=== PATIENT | female | born 1940 | race Caucasian/White ===

== ENCOUNTER → 2024-01-20 | Emergency (ER) | payer OTHER ==
[~2024-01-20] MED LIST: ASPIRIN 81 MG CHEWABLE TABLET ONE
--- OUTSIDE RECORDS SUMMARY | 2024-01-20 06:20 | XMS REPORT | Continuity of Care Document ---
Author Name Unknown Address [address] [place] [address] thconnect Address [address] [address] Care Team Providers Care Barnworker Groom Name Role Phone C_Mohinder Attending Clinician Unavailable C_Mohinder Admitting Clinician Unavailable Payers Payer Name Policy Type Policy Number Effective Date Expirati on Date Source MEDICARE B-[place]: [address] [id number] 2007 00:00:00 [employer] - PLAN F (MEDICARE SUPPLEMENT) [id number] 2014 00:00:00 Encounters Start Date/Time End Date/Time Encounter Type Admission Type Attending Clinicians Care Facility Care Department Encounter ID Source 2016-12-07 06:12:00 2016-12-07 06:12:00 Outpatient C_Mohinder [facility] [id number] [facility]
--- NOTE | 2024-01-20 07:59 | RAD REPORT ---
EXAM DESCRIPTION: Lucinat Single View01/20/2024 7:08 am CLINICAL HISTORY: CHEST PAIN COMPARISON: CHEST SINGLE VIEW dated 09/18/2012; CHEST PA AND LAT 2 VIEW dated 05/02/2010; CHEST PA AN D LAT 2 VIEW dated 12/14/2003 TECHNIQUE: Portable AP view of the chest. FINDINGS: The lungs are clear. Decreased attenuation in the left lung base is favored relate to redu ricardo penetration. No pneumothorax or effusion. The cardiomediastinal contours are unremarkable. Radiod ensities adjacent to the right greater humeral tuberosity may relate to sequelae of calcific tendinit is. IMPRESSION: No acute cardiopulmonary process.
[2024-01-20 08:10] LABS: Absolute Basophils 0.1 K/uL (0-0.5); Absolute Eosinophils 0.2 K/uL (0-0.5); Absolute Lymphocytes (CBC) 1.2 K/uL (0.7-4.9); Absolute Monocytes 0.7 K/uL (0.1-1.3); Absolute Neutrophil 3.6 K/uL (1.8-8.0); Basophils % 0.9 % (0-1.3); Eosinophils % 3.1 % (0-4.4); Hematocrit 36.6 % (36.0-45.0); Hemoglobin 12.3 g/dL (12.0-15.0); Lymphocytes % 20.4 % (15.3-44.8); MCH 29.5 pg (27.0-35.0); MCHC 33.6 g/dL (32.0-36.0); MCV 87.7 fL (80-100); MPV 8.4 fL (7.6-11.3); Monocytes % 11.8 % (3.3-12.3); Neutrophils % 63.8 % (41.7-73.7); Nucleated Red Blood Cells % 0.1 % (0-0); Platelets 230 thou/uL (152-406); RBC Red Blood Cell Count 4.17 M/uL (3.86-4.86); Red Cell Distribution Width 14.2 % (12.1-15.2)
[2024-01-20 08:12] LABS: PT Prothrombin Time 11.2 SECONDS (9.5-12.5); Protime INR 1.02
[2024-01-20 08:28] LABS: Albumin 3.7 g/dL (3.4-5.0); Albumin/Globulin Ratio 1.1 (1.1-1.8); Bilirubin Direct 0.2 mg/dL (0-0.2); Bilirubin Indirect, Calculated 0.4 mg/dL (0.2-0.8); Bilirubin Total 0.6 mg/dL (0.2-1.0); Globulin 3.4 g/dL (2.3-3.5); Magnesium 2.3 mg/dL (1.6-2.4); Protein, Total 7.1 g/dL (6.4-8.2); Troponin High Sensitivity 8.7 pg/mL (<58.9)
--- NOTE | 2024-01-20 08:47 | EDPHYS ---
Physician Documentation [facility] Name: Vianca Choudhury Age: 83 yrs Sex: Female : 1940 Arrival Date: 01/20/2024 Time: 06:18 Bed 5 Private MD: ED Physician Tera Mcgill HPI: 01/19 06:29 This 83 yrs old Female presents to ER via EMS with complaints of Arm Pain. sp4 06:29 Female with past medical history of hypertension high cholesterol IBS and dementia sp4 presents with acute onset left forearm pain and discomfort associated with pain in the left wrist. Pain is atraumatic. Patient denied chest pain denied shortness of breath denied palpitations denied numbness or tingling . On arrival patient reports that symptoms have resolved. 06:40 Patient's relatives report that patient did complain of chest discomfort. sp4 Historical: - Allergies: 06:25 No Known Allergies; jb4 - PMHx: 06:25 HTN; high cholesterol; IBS; Dementia; jb4 - Immunization history:: Adult Immunizations up to date. - Social history:: Smoking status: Patient denies any tobacco usage or history of. - Family history:: not pertinent. ROS: 06:29 Constitutional: Negative for fever, chills, and weight loss, positive for left arm sp4 forearm pain 06:29 All other systems are negative, Exam: 06:29 Constitutional: This is a well developed, well nourished patient who is awake, alert, sp4 and in no acute distress. Head/Face: Normocephalic, atraumatic. Eyes: Pupils equal round and reactive to light, extra-ocular motions intact. Lids and lashes normal. Conjunctiva and sclera are not injected. Cornea within normal limits. Periorbital areas with no swelling, redness, or edema. ENT: Nares patent. No nasal discharge, no septal abnormalities noted. Tympanic membranes are normal and external auditory canals are clear. Oropharynx with no redness, swelling, or masses, exudates, or evidence of obstruction, uvula midline. Mucous membranes moist. Neck: Trachea midline, no thyromegaly or masses palpated, and no cervical lymphadenopathy. Supple, full range of motion without nuchal rigidity, or vertebral point tenderness. Chest/axilla: Normal chest wall appearance and motion. Nontender with no deformity. No lesions are appreciated. Cardiovascular: Regular rate and rhythm with a normal S1 and S2. No gallops, murmurs, or rubs. Normal PMI, no JVD. No pulse deficits. Respiratory: Lungs have equal breath sounds bilaterally, clear to auscultation and percussion. No rales, rhonchi or wheezes noted. No increased work of breathing, no retractions or nasal flaring. Abdomen/GI: Soft, with normal bowel sounds. No distension or tympany. No guarding or rebound. No evidence of tenderness throughout. Back: No spinal tenderness. No costovertebral tenderness. Skin: Warm, dry with normal turgor. Normal color with no rashes, no lesions, and no evidence of cellulitis. MS/ Extremity: Pulses equal, no cyanosis. Neurovascular intact. Full, normal range of motion. Neuro: Awake and alert, GCS 15, oriented to person, place, time, and situation. Cranial nerves II-XII grossly intact. Motor strength 5/5 in all extremities. Sensory grossly intact. Psych: Awake, alert, with orientation to person, place and time. Behavior, mood, and affect are within normal limits 07:03 ECG was reviewed by the Attending Physician. 5:45 AM and he reveals normal sinus rhythm sp4 with a rate of 64 Vital Signs: 06:32 BP 146 / 71; Pulse 76; Resp 16; Temp 98.1(O); Pulse Ox 97% on R/A; Weight 89.81 kg (R); jb4 Pain 3/10; 08:36 BP 152 / 76; Pulse 64; Resp 17; Temp 98; Pulse Ox 99% ; bp 06:32 Pain Scale: Adult jb4 NIH Stroke Scale Scores: 06:29 NIHSS Score: 0 sp4 Anant Coma Score: 06:29 Eye Response: spontaneous(4). Motor Response: obeys commands(6). Verbal Response: sp4 oriented(5). Total: 15. MDM: 06:29 Patient medically screened. sp4 06:30 Differential diagnosis: contusion, abrasion, tendonitis. Data reviewed: vital signs, sp4 nurses notes, EMS record, old medical records. 07:04 Transition of care: After a detail discussion of the patient's case, care is sp4 transferred to Tera Mcgill MD. 01/19 06:40 Order name: Basic Metabolic Panel; Complete Time: 08:34 sp4 01/19 06:40 Order name: CBC with Diff; Complete Time: 08:24 sp4 01/19 06:40 Order name: LFT's; Complete Time: 08:34 sp4 01/19 06:40 Order name: Magnesium; Complete Time: 08:34 sp4 01/19 06:40 Order name: NT PRO-BNP; Complete Time: 08:34 sp4 01/19 06:40 Order name: PT-INR; Complete Time: 08:24 sp4 01/19 06:40 Order name: Troponin HS; Complete Time: 08:34 sp4 01/19 06:40 Order name: XRAY Chest (1 view); Complete Time: 07:59 sp4 01/19 06:28 Order name: EKG; Complete Time: 06:29 sp4 01/19 06:28 Order name: EKG - Nurse/Tech; Complete Time: 07:06 sp4 01/19 06:40 Order name: Cardiac monitoring; Complete Time: 06:44 sp4 01/19 06:40 Order name: IV Saline Lock; Complete Time: 07:49 sp4 01/19 06:40 Order name: Labs collected and sent; Complete Time: 07:49 sp4 01/19 06:40 Order name: O2 Per Protocol; Complete Time: 06:43 sp4 01/19 06:40 Order name: O2 Sat Monitoring; Complete Time: 06:43 sp4 EC:03 Rate is 64 beats/min. Rhythm is regular, Normal Sinus Rhythm. QRS [place] is Normal. IN sp4 interval is normal. QRS interval is normal. QT interval is normal. No Q waves. T waves are Normal. Clinical impression: Normal ECG. Interpreted by me. Reviewed by me. Administered Medications: 07:06 Drug: Aspirin PO Chewable Tablet 324 mg PO once; 81 mg tablets x 4 Route: PO; jb4 07:50 Follow up: Response: No adverse reaction bp Disposition Summary: 01/20/24 08:46 Discharge Ordered Notes: Location: Home cp3 Condition: Stable cp3 Diagnosis - Pain in left forearm cp3 Discharge Instructions: - Discharge Summary Sheet cp3 - Musculoskeletal Pain cp3 Forms: - Medication Reconciliation Form cp3 - Thank You Letter cp3 - Antibiotic Education cp3 - Prescription Opioid Use cp3 - Patient Portal Instructions cp3 - Leadership Thank You Letter cp3 Prescriptions: - acetaminophen-codeine 300-60 mg Oral tablet - take 1 tablet ORAL route every 8 hours as needed for pain; 12 tablet; Refills: cp3 0, Product Selection Permitted - Zanaflex 4 mg Oral Tablet - take 1 tablet ORAL route every 8 hours As needed; 20 tablet; Refills: 0, cp3 Product Selection Permitted NIH Stroke Scale - NIH Stroke Score Date: 01/20/2024 Time: 06:29 Total Score = 0 10. Dysarthria (speech clarity - read or repeat words) - 0(Normal) 11. Extinction and Inattention (visual/tactile/auditory/spatial/personal) - 0(No abnormality) 1a. Level of Consciousness (LOC) - 0(Alert) 1b. Level of Consciousness (LOC) (Month \T\ Age) - 0(Both) 1c. LOC Commands (Open \T\ Closes Eyes/Heating Unit Installer) - 0(Both) 2. Best Gaze (Lateral Gaze Paresis) - 0(Normal) 3. Visual Field Loss - 0(No visual loss) 4. Facial Palsy - 0(Normal) 5a. Left Arm: Motor (10-second hold) - 0(No drift) 5b. Right Arm: Motor (10-second hold) - 0(No drift) 6a. Left Leg: Motor (5-second hold - always test supine) - 0(No drift) 6b. Right Leg: Motor (5-second hold - always test supine) - 0(No drift) 7. Limb Ataxia (finger/nose \T\ heel/gómez - test with eyes open) - 0(Absent) 8. Sensory Loss (pinprick arms/legs/face) - 0(Normal) 9. Best Language: Aphasia (description/naming/reading) - 0(No aphasia) Initials: sp4 Signatures: Dispatcher [employer] Tera Chan MD MD cp3 Dion Serrano RN RN jb4 Omar Regalado MD MD sp4 Last Amado RN bp
--- NOTE | 2024-01-20 08:47 | ER ---
Nurse's Notes [facility] Name: Vianca Choudhury Age: 83 yrs Sex: Female : 1940 Arrival Date: 01/20/2024 Time: 06:18 Bed 5 Private MD: Diagnosis: Pain in left forearm Presentation: 01/19 06:24 Chief complaint: EMS states: Pt called EMS reporting LFA pain that woke her from her jb4 sleep. Attempted 2 IV's, missed both attempts, no meds given, BGL 102. Coronavirus screen: At this time, the client does not indicate any symptoms associated with coronavirus-19. Ebola Screen: No symptoms or risks identified at this time. Risk Assessment: Do you want to hurt yourself or someone else? Patient reports no desire to harm self or others. Onset of symptoms was January 20, 2024. Transition of care: patient was not received from another setting of care. 06:24 Method Of Arrival: EMS: [facility] 4 06:24 Acuity: SOFIYA 4 jb4 09:05 Initial Sepsis Screen: Does the patient meet any 2 criteria? No. Patient's initial bp sepsis screen is negative. Does the patient have a suspected source of infection? No. Patient's initial sepsis screen is negative. Triage Assessment: 06:25 General: Appears in no apparent distress. comfortable, Behavior is calm, cooperative, jb4 appropriate for age. Pain: Complains of pain in dorsal aspect of left forearm. Historical: - Allergies: 06:25 No Known Allergies; jb4 - PMHx: 06:25 HTN; high cholesterol; IBS; Dementia; jb4 - Immunization history:: Adult Immunizations up to date. - Social history:: Smoking status: Patient denies any tobacco usage or history of. - Family history:: not pertinent. Screenin:[facility] ED Fall Risk Assessment (Adult) History of falling in the last 3 months, jb4 including since admission No falls in past 3 months (0 pts) Confusion or Disorientation No (0 pts) Intoxicated or Sedated No (0 pts) Impaired Gait No (0 pts) Mobility Assist Device Used No (0 pt) Altered Elimination No (0 pt) Score/Fall Risk Level 0 - 2 = Low Risk Oriented to surroundings, Maintained a safe environment. Abuse screen: Denies threats or abuse. Nutritional screening: No deficits noted. Tuberculosis screening: No symptoms or risk factors identified. Assessment: 06:33 General: Appears in no apparent distress. comfortable, Behavior is calm, cooperative, jb4 appropriate for age. Pain: Complains of pain in dorsal aspect of left forearm Pain does not radiate. Pain currently is 3 out of 10 on a pain scale. Quality of pain is described as aching. Neuro: Level of Consciousness is awake, alert, obeys commands, Oriented to person, place, situation. Cardiovascular: Patient's skin is warm and dry. Respiratory: Airway is patent Respiratory effort is even, unlabored, Respiratory pattern is regular, symmetrical. GI: No signs and/or symptoms were reported involving the gastrointestinal system. : No signs and/or symptoms were reported regarding the genitourinary system. EENT: No signs and/or symptoms were reported regarding the EENT system. Derm: Skin is intact, Skin is pink, warm \T\ dry. Musculoskeletal: Circulation, motion, and sensation intact. Range of motion:. 07:00 Reassessment: RECD REPORT FROM FANG PRAJAPATI FOR 83YO WF WITH LEFT FA PAIN. bp 08:45 Reassessment: Patient appears in no apparent distress at this time. Patient is alert, bp oriented x 3, equal unlabored respirations, skin warm/dry/pink. Vital Signs: 06:32 BP 146 / 71; Pulse 76; Resp 16; Temp 98.1(O); Pulse Ox 97% on R/A; Weight 89.81 kg (R); jb4 Pain 3/10; 08:36 BP 152 / 76; Pulse 64; Resp 17; Temp 98; Pulse Ox 99% ; bp 06:32 Pain Scale: Adult jb4 Anant Coma Score: 06:29 Eye Response: spontaneous(4). Motor Response: obeys commands(6). Verbal Response: sp4 oriented(5). Total: 15. NIH Stroke Scale Scores: 06:29 NIHSS Score: 0 sp4 ED Course: 06:24 Patient arrived in ED. jb4 06:25 Triage completed. jb4 06:25 Arm band placed on right wrist. jb4 06:28 Omar Regalado MD is Attending Physician. sp4 06:33 Patient has correct armband on for positive identification. Bed in low position. Call jb4 light in reach. Side rails up X 1. Provided Education on: On plan of care and expected wait times. Client placed on continuous cardiac and pulse oximetry monitoring. NIBP monitoring applied. 06:59 Dion Serrano, RN is Primary Nurse. jb4 07:10 XRAY Chest (1 view) In Process Unspecified. EDMS 07:12 Missed attempt(s): 22 gauge in right forearm. Bleeding controlled, band aid applied, jb4 catheter tip intact. 07:20 Primary Nurse role handed off by Dion Serrano, ALO bp 07:20 Last Amado, ALO is Primary Nurse. bp 07:47 Attending Physician role handed off by Omar Regalado MD cp3 07:47 Tera Mcgill MD is Attending Physician. cp3 07:49 Basic Metabolic Panel Sent. bp 07:49 CBC with Diff Sent. bp 07:50 LFT's Sent. bp 07:50 Magnesium Sent. bp 07:50 NT PRO-BNP Sent. bp 07:50 PT-INR Sent. bp 07:50 Troponin HS Sent. bp 07:50 Inserted saline lock: 22 gauge in left wrist, using aseptic technique. Blood collected. bp 09:04 No provider procedures requiring assistance completed. IV discontinued, intact, bp bleeding controlled, No redness/swelling at site. Pressure dressing applied. Administered Medications: 07:06 Drug: Aspirin PO Chewable Tablet 324 mg PO once; 81 mg tablets x 4 Route: PO; jb4 07:50 Follow up: Response: No adverse reaction bp Medication: 06:33 VIS not applicable for this client. jb4 Outcome: 08:46 Discharge ordered by MD. cp3 09:04 Discharged to home via wheelchair, with family, bp 09:04 Condition: stable 09:04 Discharge instructions given to patient, family, Instructed on discharge instructions, follow up and referral plans. medication usage, Demonstrated understanding of instructions, follow-up care, medications, Prescriptions given X 2, 09:05 Patient left the ED. bp NIH Stroke Scale - NIH Stroke Score Date: 01/20/2024 Time: 06:29 Total Score = 0 10. Dysarthria (speech clarity - read or repeat words) - 0(Normal) 11. Extinction and Inattention (visual/tactile/auditory/spatial/personal) - 0(No abnormality) 1a. Level of Consciousness (LOC) - 0(Alert) 1b. Level of Consciousness (LOC) (Month \T\ Age) - 0(Both) 1c. LOC Commands (Open \T\ Closes Eyes/Sanding Machine Tender Automatic) - 0(Both) 2. Best Gaze (Lateral Gaze Paresis) - 0(Normal) 3. Visual Field Loss - 0(No visual loss) 4. Facial Palsy - 0(Normal) 5a. Left Arm: Motor (10-second hold) - 0(No drift) 5b. Right Arm: Motor (10-second hold) - 0(No drift) 6a. Left Leg: Motor (5-second hold - always test supine) - 0(No drift) 6b. Right Leg: Motor (5-second hold - always test supine) - 0(No drift) 7. Limb Ataxia (finger/nose \T\ heel/gómez - test with eyes open) - 0(Absent) 8. Sensory Loss (pinprick arms/legs/face) - 0(Normal) 9. Best Language: Aphasia (description/naming/reading) - 0(No aphasia) Initials: sp4 Signatures: Dispatcher [employer] EDTera Pina MD MD cp3 Dion Serrano, ALO RN jb4 Last Amado RN RN bp Omar Regalado MD MD sp4 Corrections: (The following items were deleted from the chart) 08:45 08:36 Pulse 64bpm; Resp 17bpm; Pulse Ox 99%; Temp 98F; bp bp
[2024-01-20 09:24] VITALS: BP 152/76; TEMP 98; O2SAT 99
--- NOTE | 2024-01-22 14:13 | EKG ---
Test Date: 2024-01-20 Test Time: 05:45:24 Plating Foreman: RUSTY MEASUREMENT RESULTS: Intervals: Rate: 64 GA: 140 QRSD: 78 QT: 432 QTc: 445 [place]: P: 69 GA: 140 QRS: 43 T: 59 INTERPRETIVE STATEMENTS: Normal sinus rhythm Anterior infarct, age undetermined Abnormal ECG Compared to ECG 09/19/2012 07:03:44 Myocardial infarct finding now present Electronically Signed On 01-22-24 14:07:10 CDT by Tam Walsh
== END ==
LOC: ER 06:18
DX: M79.632 Pain in left forearm (principal); R07.89 Other chest pain; F03.90 Unspecified dementia, unspecified severity, without behavioral disturbance, psychotic disturbance, mood disturbance, and anxiety; I10 Essential (primary) hypertension
CPT/HCPCS: 36415; 71045; 80048; 80076; 83735; 83880; 84484; 85025; 85610; 93005; 99284

== ENCOUNTER 2024-02-19 20:02 | Observation (INO) | payer OTHER ==
--- OUTSIDE RECORDS SUMMARY | 2024-02-19 20:05 | XMS REPORT | Continuity of Care Document ---
Author Name Unknown Address [address] [place] [address] thconnect Address [address] [place] [address] Care Team Providers Care Logistics Team Leader Name Role Phone C_Mohinder Attending Clinician Unavailable C_Mohinder Admitting Clinician Unavailable Payers Payer Name Policy Type Policy Number Effective Date Expirati on Date Source [place]: [address] [id number] 2007 00:00:00 [employer] - PLAN F (MEDICARE SUPPLEMENT) [id number] 2014 00:00:00 Encounters Start Date/Time End Date/Time Encounter Type Admission Type Attending Clinicians Care Facility Care Department Encounter ID Source 2016-12-07 06:12:00 2016-12-07 06:12:00 Outpatient C_Mohinder [facility]G MMG [id number] [facility]
[2024-02-19] MEDS ORDERED: NA CHLORIDE 0.9% 1,000 ML ONE ×2 (20:27→21:22)
[2024-02-19 20:51] LABS: Absolute Lymphocytes (CBC) 1.1 K/uL (0.7-4.9); Absolute Monocytes 0.8 K/uL (0.1-1.3); Absolute Neutrophil 5.4 K/uL (1.8-8.0); Basophils % 0.4 % (0-1.3); Eosinophils % 0.6 % (0-4.4); Hematocrit 33.6 % (36.0-45.0); Hemoglobin 11.5 g/dL (12.0-15.0); Lymphocytes % 15.2 % (15.3-44.8); MCH 29.3 pg (27.0-35.0); MCHC 34.1 g/dL (32.0-36.0); MPV 8.2 fL (7.6-11.3); Monocytes % 10.9 % (3.3-12.3); Neutrophils % 72.9 % (41.7-73.7); Nucleated Red Blood Cells % 0.1 % (0-0); Platelets 178 thou/uL (152-406); Red Cell Distribution Width 13.4 % (12.1-15.2)
[2024-02-19 20:53] LABS: SARS-CoV-2 Antigen CONTROL BLUE LINE VIS/BG OK; SARS-CoV-2 Antigen Rapid Res Negative (Negative)
[2024-02-19 21:04] LABS: Albumin 3.1 g/dL (3.4-5.0); Anion Gap 8.7 mEq/L (5.0-15.0); Bilirubin Total 0.5 mg/dL (0.2-1.0); Globulin 3.1 g/dL (2.3-3.5); Potassium 3.7 mEq/L (3.5-5.1); Protein, Total 6.2 g/dL (6.4-8.2)
--- NOTE | 2024-02-19 21:45 | RAD REPORT ---
EXAM DESCRIPTION: Lucinat Single View02/19/2024 8:57 pm CLINICAL HISTORY: FEVER COMPARISON: Chest Single View dated 01/20/2024; CHEST SINGLE VIEW dated 09/18/2012; CHEST PA AND LAT 2 VIEW dated 05/02/2010; CHEST PA AND LAT 2 VIEW dated 12/14/2003 TECHNIQUE: Portable AP view of the chest. FINDINGS: Under penetration somewhat limits evaluation. The lungs are clear. No pneumothorax or eff usion. The cardiomediastinal contours are unremarkable. IMPRESSION: No acute cardiopulmonary process.
--- NOTE | 2024-02-19 21:50 | EDPHYS ---
Physician Documentation [facility] Name: Vianca Choudhury Age: 83 yrs Sex: Female : 1940 Arrival Date: 02/19/2024 Time: 20:02 Bed 13 Private MD: ED Physician Omar Regalado HPI: 02/18 21:38 This 83 yrs old Female presents to ER via Ambulatory with complaints of sent by kb pcp:headache,body aches,fever,weakness, Headache, General Weakness. 21:38 Pt is an 83 year old female who presents for sore throat, fever, chills, bodyaches, kb decreased appetite and decreased urination that started yesterday. Had a teledoc visit with Dr Hawkins who recommended she come to the ER for evaluation and admission. Historical: - Allergies: 20:14 No Known Allergies; as6 - PMHx: 20:14 Dementia; High Cholesterol; HTN; ibs; Asthma; as6 - PSHx: 20:14 Total abdominal hysterectomy; Cholecystectomy; Exploratory laparotomy; as6 - Immunization history:: Adult Immunizations up to date. - Infectious Disease History:: Denies. - Social history:: Smoking status: Patient denies any tobacco usage or history of. ROS: 21:38 Constitutional: As per HPI kb Exam: 21:38 Constitutional: This is a well developed, well nourished patient who is awake, alert, kb and in no acute distress. Head/Face: Normocephalic, atraumatic. ENT: Moist Mucous membranes Cardiovascular: Regular rate Respiratory: Respirations even and unlabored. No increased work of breathing. Talking in full sentences Abdomen/GI: Soft, non-tender. No distention Skin: Warm, dry with normal turgor. Normal color. MS/ Extremity: Pulses equal, no cyanosis. Neurovascular intact. Full, normal range of motion. Neuro: Awake and alert, GCS 15, oriented to person, place, time, and situation. Moves all extremities. Normal gait. Vital Signs: 20:11 BP 116 / 66; Pulse 74; Resp 16 S; Temp 98.8(O); Pulse Ox 97% on R/A; Weight 86.18 kg as6 (R); Height 5 ft. 3 in. (R); 20:34 BP 99 / 51; Pulse 73; Resp 17; Pulse Ox 96% ; rv 21:05 BP 92 / 61; Pulse 68; Resp 16; Pulse Ox 96% on R/A; rv 21:23 BP 102 / 57; Pulse 69; Resp 17; Pulse Ox 96% on R/A; rv 21:47 BP 103 / 64; Pulse 61; Resp 16; Pulse Ox 96% on R/A; rv 22:33 BP 111 / 82; Pulse 67; Resp 15; Temp 98; Pulse Ox 96% on R/A; rv 20:11 Body Mass Index 33.66 (86.18 kg, 160.02 cm) as6 Anant Coma Score: 20:33 Eye Response: spontaneous(4). Motor Response: obeys commands(6). Verbal Response: rv oriented(5). Total: 15. 22:34 Eye Response: spontaneous(4). Motor Response: obeys commands(6). Verbal Response: rv oriented(5). Total: 15. MDM: 20:10 Patient medically screened. kb 21:39 Differential diagnosis: flu, covid, strep, uri, dehydration. Data reviewed: vital kb signs, nurses notes. Historians other than the Patient: Spouse/Significant Other: daughter. 21:44 Consideration of Admission/Observation Patient was admitted/placed on observation. kb Escalation of care including admission/observation considered. Management of patient was discussed with the following: Management of patient was discussed with the following: Primary Care Provider: alicia Sexton pt admitted to inpatient status due to hypotension, repeat labs in AM and NS 100ml/hr. 21:48 Counseling: I had a detailed discussion with the patient and/or guardian regarding the kb historical points, exam findings, and any diagnostic results supporting the discharge/admit diagnosis, lab results, radiology results, the need for further work-up and treatment in the hospital. 02/18 20:15 Order name: CBC with Diff; Complete Time: 20:54 kb 02/18 20:15 Order name: CMP; Complete Time: 21:08 kb 02/18 20:15 Order name: Flu; Complete Time: 21:03 kb 02/18 20:15 Order name: SARS-COV-2 Antigen Rapid; Complete Time: 20:54 kb 02/18 20:15 Order name: Strep; Complete Time: 21:03 kb 02/18 20:15 Order name: Urinalysis w/ reflexes; Complete Time: 22:33 kb 02/18 21:05 Order name: Throat Culture EDMS 02/18 20:15 Order name: Chest Single View XRAY; Complete Time: 21:47 kb 02/18 20:15 Order name: IV Start; Complete Time: 20:32 kb Administered Medications: 20:32 Drug: NS 0.9% IV 1000 ml IV at 1000 ml once Route: IV; Rate: 1000 ml; Site: right rv forearm; 21:31 Follow up: IV Status: Completed infusion; IV Intake: 1000ml rv 21:31 Drug: NS 0.9% IV 1000 ml IV at 75 ml/hr continuous Route: IV; Rate: 75 ml/hr; Site: rv right forearm; 22:35 Follow up: IV Status: Infusion continued upon admission rv Disposition: 22:52 Co-signature as Attending Physician, Omar Regalado MD I agree with the assessment sp4 and plan of care. I reviewed the patient's care provided by the Advanced Practice Provider and agree with the diagnosis and treatment plan. Disposition Summary: 02/19/24 21:50 Hospitalization Ordered Notes: Hospitalization Status: Inpatient Admission kb Provider: Norman Hawkins Location: Telemetry/MedSurg (Inpatient) kb Condition: Stable kb Problem: new kb Symptoms: are unchanged kb Bed/Room Type: Standard Room Assignment: 414(02/19/24 22:19) Diagnosis - Viral infection, unspecified kb - Hypotension, unspecified kb Forms: - Medication Reconciliation Form kb - SBAR form kb - Leadership Thank You Letter kb Signatures: Dispatcher [employer] EDIA Isabela Curtis, HUMIDIFIER ATTENDANT-C HUMIDIFIER ATTENDANT-Ckb Perfecto Rios, RN Leigha Johnson Ashby, RN RN as6 Omar Regalado MD MD sp4 Corrections: (The following items were deleted from the chart) 20:16 20:16 CBC+H.LAB.BRZ ordered. EDMS EDMS 20:16 20:16 COMPREHENSIVE METABOLIC PANEL+C.LAB.BRZ ordered. EDMS EDMS 20:16 20:16 Influenza Screen (A \T\ B)+BA.LAB.BRZ ordered. EDMS EDMS 20:16 20:16 SARS-COV-2 Antigen Rapid+I.LAB.BRZ ordered. EDMS EDMS 20:16 20:16 Group A Streptococcus Rapid Sc+BA.LAB.BRZ ordered. EDMS EDMS 20:16 20:16 Urinalysis+U.LAB.BRZ ordered. EDMS EDMS 21:48 21:44 Management of patient was discussed with the following: kb kb 22:19 21:50 kb wm
--- NOTE | 2024-02-19 21:50 | ER ---
Nurse's Notes [facility] Name: Vianca Choudhury Age: 83 yrs Sex: Female : 1940 Arrival Date: 02/19/2024 Time: 20:02 Bed 13 Private MD: Diagnosis: Viral infection, unspecified;Hypotension, unspecified Presentation: 02/18 20:11 Chief complaint: Patient states: "I just don't feel good". Coronavirus screen: At this as6 time, the client does not indicate any symptoms associated with coronavirus-19. Ebola Screen: No symptoms or risks identified at this time. Initial Sepsis Screen: Does the patient meet any 2 criteria? No. Patient's initial sepsis screen is negative. Does the patient have a suspected source of infection? No. Patient's initial sepsis screen is negative. Risk Assessment: Do you want to hurt yourself or someone else? Patient reports no desire to harm self or others. Onset of symptoms was February 19, 2024. 20:11 Method Of Arrival: Ambulatory as6 20:11 Acuity: SOFIYA 3 as6 Historical: - Allergies: 20:14 No Known Allergies; as6 - PMHx: 20:14 Dementia; High Cholesterol; HTN; ibs; Asthma; as6 - PSHx: 20:14 Total abdominal hysterectomy; Cholecystectomy; Exploratory laparotomy; as6 - Immunization history:: Adult Immunizations up to date. - Infectious Disease History:: Denies. - Social history:: Smoking status: Patient denies any tobacco usage or history of. Screenin:33 [facility] ED Fall Risk Assessment (Adult) History of falling in the last 3 months, rv including since admission No falls in past 3 months (0 pts) Score/Fall Risk Level 0 - 2 = Low Risk Oriented to surroundings, Maintained a safe environment, Educated pt \\T\\ family on fall prevention, incl call for assistance when getting out of bed, Assessed \\T\\ reinforced patient's understanding of fall precautions. Abuse screen: Denies threats or abuse. Denies injuries from another. Nutritional screening: No deficits noted. Tuberculosis screening: No symptoms or risk factors identified. Assessment: 20:33 General: Appears comfortable, Behavior is calm, cooperative. Pain: Denies pain. Neuro: rv Level of Consciousness is awake, alert, obeys commands, Oriented to person, place, time, situation. Cardiovascular: Capillary refill < 3 seconds Patient's skin is warm and dry. Respiratory: Airway is patent Respiratory effort is even, unlabored, Breath sounds are clear bilaterally. GI: No signs and/or symptoms were reported involving the gastrointestinal system. : No signs and/or symptoms were reported regarding the genitourinary system. Derm: Skin is intact. Vital Signs: 20:11 BP 116 / 66; Pulse 74; Resp 16 S; Temp 98.8(O); Pulse Ox 97% on R/A; Weight 86.18 kg as6 (R); Height 5 ft. 3 in. (R); 20:34 BP 99 / 51; Pulse 73; Resp 17; Pulse Ox 96% ; rv 21:05 BP 92 / 61; Pulse 68; Resp 16; Pulse Ox 96% on R/A; rv 21:23 BP 102 / 57; Pulse 69; Resp 17; Pulse Ox 96% on R/A; rv 21:47 BP 103 / 64; Pulse 61; Resp 16; Pulse Ox 96% on R/A; rv 22:33 BP 111 / 82; Pulse 67; Resp 15; Temp 98; Pulse Ox 96% on R/A; rv 20:11 Body Mass Index 33.66 (86.18 kg, 160.02 cm) as6 [place] Coma Score: 20:33 Eye Response: spontaneous(4). Motor Response: obeys commands(6). Verbal Response: rv oriented(5). Total: 15. 22:34 Eye Response: spontaneous(4). Motor Response: obeys commands(6). Verbal Response: rv oriented(5). Total: 15. ED Course: 20:07 Patient arrived in ED. ra3 20:10 Isabela Curtis FNP-C [facility]. kb 20:10 Omar Regalado MD is Attending Physician. kb 20:10 Arm band placed on right wrist. as6 20:14 Triage completed. as6 20:16 Perfecto Rios, ALO is Primary Nurse. rv 20:32 Strep Sent. rv 20:32 SARS-COV-2 Antigen Rapid Sent. rv 20:32 Flu Sent. rv 20:32 CMP Sent. rv 20:32 CBC with Diff Sent. rv 20:33 Patient has correct armband on for positive identification. Client placed on continuous rv cardiac and pulse oximetry monitoring. NIBP monitoring applied. 20:33 No provider procedures requiring assistance completed. Initial lab(s) drawn, by me, rv sent to lab. COVID swab sent to lab. Flu and/or RSV swab sent to lab. Strep swab sent to lab. Inserted saline lock: 20 gauge in right forearm, using aseptic technique. Blood collected. 20:59 Chest Single View XRAY In Process Unspecified. EDMS 21:49 Norman Hawkins MD is Hospitalizing Provider. kb 22:35 Patient admitted, IV remains in place. rv Administered Medications: 20:32 Drug: NS 0.9% IV 1000 ml IV at 1000 ml once Route: IV; Rate: 1000 ml; Site: right rv forearm; 21:31 Follow up: IV Status: Completed infusion; IV Intake: 1000ml rv 21:31 Drug: NS 0.9% IV 1000 ml IV at 75 ml/hr continuous Route: IV; Rate: 75 ml/hr; Site: rv right forearm; 22:35 Follow up: IV Status: Infusion continued upon admission rv Medication: 20:33 VIS not applicable for this client. rv Intake: 21:31 IV: 1000ml; Total: 1000ml. rv Outcome: 21:50 Decision to Hospitalize by Provider. kb 22:34 Admitted to Tele accompanied by tech, via wheelchair, room 414, Report called to faxed rv and received report by Margo PRAJAPATI \\T\\[id number] 22:34 Condition: good 22:34 Instructed on the need for admit, 23:01 Patient left the ED. vc1 Signatures: Dispatcher [employer] EDMS Isabela Curtis, CAMPAIGN CONSULTANT-C CAMPAIGN CONSULTANT-Perfecto Jacobs RN RN rv Best Schaefer RN RN as6 Natalie Orellana RN RN 1 Felicity Baker ra3
[2024-02-19 22:25] LABS: Specific Gravity 1.011 (1.005-1.030); Sqamous Epithelial <5 /HPF (None Seen); Urine Bacteria None Seen /HPF (<20); Urine Bilirubin NEGATIVE (Negative); Urine Blood Negative (Negative); Urine Clarity Clear (Clear); Urine Color Light-Yellow (Yellow); Urine Culture Reflex Order REFLEXED; Urine Glucose NEGATIVE (Negative); Urine Ketones NEGATIVE (Negative); Urine Microscopic Reflex YN ORDER UMIC; Urine Mucus Slight /HPF (None Seen); Urine Nitrite NEGATIVE (Negative); Urine Protein NEGATIVE (Negative); Urine RBC <5 /HPF (None Seen); Urine Urobilinogen Normal (Normal); Urine WBC 20-50 /HPF (<5); Urine WBC Clump Rare /HPF (None Seen)
[2024-02-19] MEDS: NA CHLORIDE 0.9% 1,000 ML IV SCH (23:15)
[2024-02-20 04:52] VITALS: O2SAT 93; BMI 35.1
[2024-02-20 07:21] LABS: Absolute Eosinophils 0.1 K/uL (0-0.5); Absolute Lymphocytes (CBC) 0.8 K/uL (0.7-4.9); Absolute Monocytes 1.2 K/uL (0.1-1.3); Absolute Neutrophil 6.5 K/uL (1.8-8.0); Basophils % 0.5 % (0-1.3); Eosinophils % 1.5 % (0-4.4); Hematocrit 35.7 % (36.0-45.0); Hemoglobin 11.8 g/dL (12.0-15.0); MCHC 33.1 g/dL (32.0-36.0); MCV 87.5 fL (80-100); MPV 8.5 fL (7.6-11.3); Monocytes % 13.9 % (3.3-12.3); Neutrophils % 75.1 % (41.7-73.7); Platelets 180 thou/uL (152-406); RBC Red Blood Cell Count 4.08 M/uL (3.86-4.86); Red Cell Distribution Width 13.3 % (12.1-15.2)
[2024-02-20 09:07] VITALS: BP 133/61; TEMP 98.1
--- NOTE | 2024-02-20 11:16 | PN ---
This is a Code 44 note. The patient is an 83-year-old female who was admitted with flu-like symptoms and was evaluated by Dr. Hawkins this morning and he felt that the patient can be discharged home as she is clinically improved with hydration, did not need to be an inpatient; therefore, Dr. Hawkins discharged the patient with foll owup with him in his office. I have reviewed the chart and I concurred and I approved this conversio n from inpatient to observation. LINDSAY/MONY Voice ID: [id number] Report ID: [id number]
--- NOTE | 2024-02-20 19:53 | DS ---
Date of Discharge: 02/20/2024 Chief Complaint: Fever, cough, congestion, headache, body ache. History Of Present Illness: This is an 83-year-old very pleasant female patient, who started to have sore throat, low-grade fever around 99.5 degrees Fahrenheit with some headache, body ache, and very poor appetite and not eating and drinking well for last 2 days. Symptoms started on Sunday, which is 02/18/2024. Yesterday, the patient had a tele visit with me. After I evaluated her, I informed rosana tee that my suggestion is for her to come to emergency room for further evaluation and after she wa s evaluated in ER last night, she was admitted to the hospital. Her blood pressure was around 90 sys tolic when she came into ER and IV fluid was given to her in ER and then maintenance IV fluid continu ed. This morning, she is feeling much better and she looks a lot better compared to yesterday when I evaluated her for tele visit. She denies any complaints overnight. No diarrhea. No vomiting. Allergies: NO KNOWN ALLERGIES. Medications: Atorvastatin 20 mg daily, albuterol inhaler as needed, amlodipine 5 mg 2 times a day, a spirin 81 mg daily, dicyclomine 20 mg every 6 hours as needed, escitalopram 5 mg daily, galantamine 4 mg daily, lisinopril/HCTZ 20/25 mg 1 tablet by mouth daily. Review of Systems: Constitutional: As mentioned above. Respiratory: As mentioned above. ENT: As mentioned above. All other systems reviewed and negative. Past Medical History: Significant for hypertension, hyperlipidemia, hypothyroidism, mild intermitten t asthma, irritable bowel syndrome, osteoarthritis at multiple sites, osteopenia, vitamin D deficienc y. Past Surgical History: Tonsillectomy, cholecystectomy, appendectomy, hysterectomy, back surgery, kne e surgery, and hand surgery. Family History: Father , had asthma and myocardial infarction. Mother , had cirrhosis of li taz. Brother with heart disease and sister with Parkinson's disease, asthma, and emphysema. Social History: Negative for smoking. Use of alcohol occasional. Physical Examination: Vital Signs: This morning, temperature 98.3, pulse 66, respiratory rate 14, blood pressure 117/58, o xygen saturation 93% on room air. Height 5 feet 3 inches, weight 198 pounds. General: Awake, alert, oriented, not in distress. HEENT: Head atraumatic, normocephalic. Conjunctivae nonerythematous. Sclerae white. Mouth, no thr ush or edema noted. Ears/Nose, no mass, lesion, discharge noted. Neck: Supple. No JVD, lymph nodes, bruit, thyromegaly noted. Lungs: Bilateral good equal air entry. Clear to auscultation. No rhonchi. No rales. Heart: Normal heart sounds, no murmur or gallop. Abdomen: Soft, bowel sounds normal. No guarding, rigidity, tenderness, mass, hepatosplenomegaly, dis tention, or bruit noted. Extremities: No leg edema. No calf tenderness. Skin: No rash, ulcer, cellulitis. Lymphatics: No lymph node enlargement in neck, supraclavicular, infraclavicular region. Neuro: No focal neurological deficit. Chest: Unremarkable. External Genitalia: Deferred. Rectal: Deferred. Laboratory Data: Yesterday, white count 7.5, hemoglobin 11.5, platelets 178. This morning, white co unt 8.7, hemoglobin 11.8, platelets 180. Yesterday, chemistry, sodium 130, potassium 3.7, chloride 9 7, bicarb 28, BUN 16, creatinine 1, glucose 140. Liver function tests unremarkable. This morning, s odium 134, potassium 4, chloride 103, bicarb 27, BUN 12, creatinine 0.72, glucose 95. Urinalysis, le ukocytes 500, otherwise wbc 20 to 50, bacteria not seen, nitrites negative. Hospital Course: After the patient was evaluated in the ER, she was admitted to the hospital. The p atient had volume depletion with low blood pressure which was corrected with IV fluid hydration. Her influenza A, B, and COVID-19 test was negative. After I saw her, she was discharged to go back home in stable condition. What we suspected is the patient probably had some kind of viral infection and no need for any further hospitalization or any further intervention. Discharge Medications And Instructions: Continue all prior home medications except following changes : 1.Stop lisinopril/HCTZ. 2.Check blood pressure 2 times a day and if your systolic blood pressure which top number is less th an 130, then do not take your amlodipine. 3.Keep well hydrated and drink 60 ounces water daily. 4.Follow up at my office next week on 02/25/2024. Total time spent today minutes. BAUTISTA/MODL Voice ID: [id number] Report ID: [id number]
== END 2024-02-20 10:40 | disposition home or self-care (01) ==
LOC: ER 20:02 → ERHOLD 21:52 → INTOOBSV 21:52 → 4TH 22:26
PROVIDERS: ADMIT Internal Medicine; ATTEND Internal Medicine
DX: B34.9 Viral infection, unspecified (principal); I95.9 Hypotension, unspecified; E78.00 Pure hypercholesterolemia, unspecified; F03.90 Unspecified dementia, unspecified severity, without behavioral disturbance, psychotic disturbance, mood disturbance, and anxiety; J45.909 Unspecified asthma, uncomplicated; I10 Essential (primary) hypertension; E78.5 Hyperlipidemia, unspecified; E03.9 Hypothyroidism, unspecified; K58.9 Irritable bowel syndrome, unspecified; M19.90 Unspecified osteoarthritis, unspecified site; M85.80 Other specified disorders of bone density and structure, unspecified site; E55.9 Vitamin D deficiency, unspecified; Z11.52 Encounter for screening for COVID-19
CPT/HCPCS: 96361; 87070; 87088; 85025 ×2; 81001; 87086; 80048; 36415; 87081; 80053; 87804 ×2; 71045; 96360; 99285; 87811; J7030 ×2; G0378

== ENCOUNTER 2024-11-30 18:40 | Observation (INO) | payer OTHER ==
--- OUTSIDE RECORDS SUMMARY | 2024-11-30 18:43 | XMS REPORT | Continuity of Care Document ---
Author Name Unknown Address [address] [place] [address] [employer]connect Address [address] [place] [address] Care Team Providers Care Sock Boarder Name Role Phone C_Mohinder Attending Clinician Unavailable C_Mohinder Admitting Clinician Unavailable Payers Payer Name Policy Type Policy Number Effective Date Expirati on Date Source MEDICARE [place]: [employer] [id number] 2007 00:00:00 [employer] - PLAN F (MEDICARE SUPPLEMENT) [id number] 2014 00:00:00 Encounters Start Date/Time End Date/Time Encounter Type Admission Type Attending Clinicians Care Facility Care Department Encounter ID Source 2016-12-07 06:12:00 2016-12-07 06:12:00 Outpatient C_Hall [facility] [id number] [facility]
--- NOTE | 2024-11-30 20:22 | RAD REPORT ---
EXAM: Chest Single View HISTORY: syncope COMPARISON: 02/19/2024 FINDINGS: LUNGS/PLEURA: The lungs are clear. No pleural effusions or pneumothorax. No pulmonary edema. MEDIASTINUM: The mediastinal silhouette is within normal limits. CARDIAC: Stable size and configuration. UPPER ABDOMEN: No significant abnormality. BONES: No acute abnormality. LINES/TUBES/OTHER: N/A IMPRESSION: No evidence of acute cardiopulmonary disease.
[2024-11-30 21:03] LABS: Absolute Basophils 0.1 K/uL (0-0.5); Absolute Eosinophils 0.1 K/uL (0-0.5); Absolute Monocytes 0.6 K/uL (0.1-1.3); Absolute Neutrophil 7.8 K/uL (1.8-8.0); Basophils % 0.6 % (0-1.3); Eosinophils % 1.1 % (0-4.4); Hematocrit 39.4 % (36.0-45.0); Hemoglobin 13.1 g/dL (12.0-15.0); Lymphocytes % 10.1 % (15.3-44.8); MCH 28.7 pg (27.0-35.0); MCHC 33.2 g/dL (32.0-36.0); MCV 86.4 fL (80-100); MPV 8.5 fL (7.6-11.3); Monocytes % 6.3 % (3.3-12.3); Neutrophils % 81.9 % (41.7-73.7); Nucleated Red Blood Cells % 0.2 % (0-0); Platelets 215 thou/uL (152-406); RBC Red Blood Cell Count 4.57 M/uL (3.86-4.86)
[2024-11-30 21:05] LABS: PT Prothrombin Time 11.2 SECONDS (9.4-12.5); PTT, Activated Partial Thromb 28.3 SECONDS (24.3-36.9); Protime INR 1.07
[2024-11-30 21:12] LABS: Albumin 3.5 g/dL (3.4-5.0); Albumin/Globulin Ratio 0.9 (1.1-1.8); Anion Gap 10.4 mEq/L (5.0-15.0); Bilirubin Direct 0.2 mg/dL (0-0.2); Bilirubin Indirect, Calculated 0.5 mg/dL (0.2-0.8); Bilirubin Total 0.7 mg/dL (0.2-1.0); Globulin 3.8 g/dL (2.3-3.5); Magnesium 2.2 mg/dL (1.6-2.4); Potassium 4.4 mEq/L (3.5-5.1); Protein, Total 7.3 g/dL (6.4-8.2); Troponin High Sensitivity 6.6 pg/mL (<58.9)
--- NOTE | 2024-11-30 21:22 | RAD REPORT ---
EXAMINATION: CT HEAD WITHOUT CONTRAST CLINICAL INDICATION: Female, 84 years old.syncope, headache TECHNIQUE: Axial CT images from the skull base to the vertex without intravenous contrast. Coronal an d sagittal reformatted images were created from the data set. One or more of the following dose reduction techniques were used: Automated exposure control, adjustment of the mA and/or kV according to patient size, and/or iterative reconstruction. Unless otherwise specified, incidental findings do not require dedicated imaging follow-up. [id number]. COMPARISON: No prior exam. FINDINGS: INTRACRANIAL: No acute intracranial hemorrhage. No hydrocephalus. No mass effect or midline shift. Mo derate chronic small vessel ischemic changes.Age advanced cerebral atrophy. VASCULATURE: No visualized abnormalities in the arteries or dural venous sinuses. SCALP/SKULL: No significant soft tissue or osseous abnormalities. SINUSES: The visualized paranasal sinuses and mastoid air cells are predominantly clear. IMPRESSION: No acute intracranial abnormality.
--- NOTE | 2024-11-30 21:36 | ER ---
Nurse's Notes [facility] Name: Vianca Choudhury Age: 84 yrs Sex: Female : 1940 Arrival Date: 11/30/2024 Time: 18:40 Bed 14 Private MD: Diagnosis: syncope Presentation: 11/30 18:47 Chief complaint: EMS states: patient and her daughter were in dressing room at [place] [address] and the patient felt dizzy and collapsed, woke up after 1-2 minutes, did not hit the ground, daughter caught her and assisted her to the floor. Coronavirus screen: At this time, the client does not indicate any symptoms associated with coronavirus-19. Ebola Screen: No symptoms or risks identified at this time. Initial Sepsis Screen: Does the patient meet any 2 criteria? No. Patient's initial sepsis screen is negative. Does the patient have a suspected source of infection? No. Patient's initial sepsis screen is negative. Risk Assessment: Do you want to hurt yourself or someone else? Patient reports no desire to harm self or others. Onset of symptoms was November 30, 2024. Care prior to arrival: Medication(s) given: Normal saline infusion, 1000 mL, IV initiated. 20 GA, in the right forearm, Glucose check: 75. 18:47 Method Of Arrival: EMS: [facility] ko1 18:47 Acuity: SOFIYA 3 ko1 Triage Assessment: 18:52 General: Appears in no apparent distress. Behavior is calm, cooperative, appropriate ko1 for age. Pain: Denies pain. Neuro: Reports a syncopal episode. Historical: - Allergies: 18:52 No Known Allergies; ko1 - Home Meds: 18:52 Unable to obtain [Active]; ko1 - PMHx: 18:52 Asthma; Dementia; High Cholesterol; HTN; ibs; ko1 - PSHx: 18:52 Cholecystectomy; Exploratory laparotomy; Total abdominal hysterectomy; ko1 - Immunization history:: Adult Immunizations up to date. - Infectious Disease History:: Denies. - Social history:: Smoking status: Patient denies any tobacco usage or history of. Screenin:53 [facility] ED Fall Risk Assessment (Adult) History of falling in the last 3 months, ko1 including since admission Yes- single mechanical fall (1 pt) Confusion or Disorientation No (0 pts) Intoxicated or Sedated No (0 pts) Impaired Gait No (0 pts) Mobility Assist Device Used No (0 pt) Altered Elimination No (0 pt) Score/Fall Risk Level 0 - 2 = Low Risk Oriented to surroundings, Maintained a safe environment, Educated pt \T\ family on fall prevention, incl call for assistance when getting out of bed, Assessed \T\ reinforced patient's understanding of fall precautions, Hourly rounding (assess needs \T\ fall precautionary measures) done. Abuse screen: Denies threats or abuse. Denies injuries from another. Nutritional screening: No deficits noted. Tuberculosis screening: No symptoms or risk factors identified. Assessment: 18:53 Neuro: Level of Consciousness is awake, alert, obeys commands. Cardiovascular: Rhythm ko1 is sinus rhythm. 19:55 Reassessment: Patient appears in no apparent distress at this time. Patient and/or kj2 family updated on plan of care and expected duration. Pain level reassessed. Patient is alert, oriented x 3, equal unlabored respirations, skin warm/dry/pink. 20:50 Reassessment: Patient appears in no apparent distress at this time. Patient and/or kj2 family updated on plan of care and expected duration. Pain level reassessed. Patient is alert, oriented x 3, equal unlabored respirations, skin warm/dry/pink. Vital Signs: 18:47 BP 129 / 64; Pulse 67; Resp 16; Temp 97; Pulse Ox 97% on R/A; ko1 21:00 BP 131 / 71; Pulse 77; Resp 20; Pulse Ox 99% on R/A; kj2 ED Course: 18:46 Patient arrived in ED. ko1 18:47 Phoebe Hernandez, ALO is Primary Nurse. ko1 18:52 Triage completed. ko1 18:52 Arm band placed on right wrist. Patient placed in an exam room, on a stretcher, on ko1 pulse oximetry, Patient notified of wait time. 18:53 Patient has correct armband on for positive identification. Bed in low position. Call ko1 light in reach. Side rails up X2. Provided Education on: labs. Pulse ox on. NIBP on. Door closed. Noise minimized. Lights dimmed. 18:53 Maintain EMS IV. Dressing intact. Good blood return noted. Site clean \T\ dry. Gauge \T\ ko 1 site: 20g right FA. Flushed with 10 mL NS. 19:14 Chip Frias DO is Attending Physician. ms3 20:12 Chest Single View XRAY In Process Unspecified. EDMS 20:41 Missed attempt(s): 24 gauge Bleeding controlled, band aid applied, catheter tip intact. oe 20:47 Inserted saline lock: 22 gauge in right antecubital area, using aseptic technique. oe Blood collected. Flushed with 10 mL NS. 20:48 Basic Metabolic Panel Sent. oe 20:49 CBC with Diff Sent. oe 20:49 Hepatic Function Sent. oe 20:49 Magnesium Sent. oe 20:49 Protime (+inr) Sent. oe 20:49 Ptt, Activated Sent. oe 20:49 Troponin High Sensitivity Sent. oe 21:13 CT Head Brain wo Cont In Process Unspecified. EDMS 21:35 Norman Hawkins MD is Hospitalizing Provider. ms3 22:15 No provider procedures requiring assistance completed. rg5 22:15 Patient admitted, IV remains in place. [facility] 12/01 07:22 Primary Nurse role handed off by Phoebe Hernandez, ALO bd Administered Medications: 11/30 23:00 Drug: Ativan IVP 0.5 mg IVP once Route: IVP; Site: right antecubital; [facility] 12/01 01:03 Follow up: Response: No adverse reaction [facility] 02:55 Drug: Ativan IVP 0.5 mg IVP once Route: IVP; Site: right antecubital; [facility] 10:05 Follow up: Response: No adverse reaction; Anxiety decreased; RASS: Drowsy (-1) ll1 Medication: 11/30 18:53 VIS not applicable for this client. ko1 Point of Care Testin/27 14:27 n/a ll1 Ranges: Outcome: 11/30 21:35 Decision to Hospitalize by Provider. ms3 22:15 Admitted to ER Hold. Please see [facility] for further documentation. rg5 22:15 Condition: stable 22:15 Instructed on the need for admit, 12/01 14:36 Patient left the ED. ll1 Signatures: Dispatcher [employer] EDMS Rachel Cruz [place] oe Lizbeth Canada RN RN ll1 Chip Frias DO DO ms3 Phoebe Hernandez, RN RN ko1 Thomas Simon, RN RN rg5 Jordana Lilly, RN RN kj2
--- NOTE | 2024-11-30 21:36 | EDPHYS ---
Physician Documentation [facility] Name: Vianca Choudhury Age: 84 yrs Sex: Female : 1940 Arrival Date: 11/30/2024 Time: 18:40 Bed 14 Private MD: ED Physician Chip Frias HPI: 11/30 21:36 This 84 yrs old Female presents to ER via EMS with complaints of Syncope. ms3 21:36 Vianca Choudhury, an 84-year-old female, presents to the emergency department following a ms3 syncopal episode. The patient has experienced significant stress recently due to the loss of her . This afternoon she ate and drank well before going shopping. While in a warm dressing room with flickering lights, she began feeling dizzy and shortly after, lost consciousness. She did not hit her head during the fall and was caught by her daughter. Upon regaining consciousness, she felt nauseous but did not vomit. She does not recall the episode or feeling unwell before passing out. There is a report of a mild frontal headache but no numbness, weakness, or vomiting.. Historical: - Allergies: 18:52 No Known Allergies; ko1 - Home Meds: 18:52 Unable to obtain [Active]; ko1 - PMHx: 18:52 Asthma; Dementia; High Cholesterol; HTN; ibs; ko1 - PSHx: 18:52 Cholecystectomy; Exploratory laparotomy; Total abdominal hysterectomy; ko1 - Immunization history:: Adult Immunizations up to date. - Infectious Disease History:: Denies. - Social history:: Smoking status: Patient denies any tobacco usage or history of. ROS: 21:36 Constitutional: Negative for fever, and chills. Respiratory: Negative for shortness of ms3 breath, cough, wheezing, and pleuritic chest pain, Abdomen/GI: Negative for abdominal pain, nausea, vomiting, diarrhea, and constipation, MS/Extremity: Negative for injury and deformity, Skin: Negative for injury, rash, and discoloration, 21:36 Neuro: Positive for syncope, Exam: 21:36 Constitutional: This is a well developed, well nourished patient who is awake, alert, ms3 and in no acute distress. Cardiovascular: Regular rate and rhythm with a normal S1 and S2. No gallops, murmurs, or rubs. Normal PMI, no JVD. No pulse deficits. Respiratory: Lungs have equal breath sounds bilaterally, clear to auscultation and percussion. No rales, rhonchi or wheezes noted. No increased work of breathing, no retractions or nasal flaring. Back: No spinal tenderness. No costovertebral tenderness. Full range of motion. Skin: Warm, dry with normal turgor. Normal color with no rashes, no lesions, and no evidence of cellulitis. MS/ Extremity: Pulses equal, no cyanosis. Neurovascular intact. Full, normal range of motion. 21:36 ECG was reviewed by the Attending Physician. ms3 Vital Signs: 18:47 BP 129 / 64; Pulse 67; Resp 16; Temp 97; Pulse Ox 97% on R/A; ko1 21:00 BP 131 / 71; Pulse 77; Resp 20; Pulse Ox 99% on R/A; kj2 MDM: 19:33 Medical Screening Exam initiated ms3 21:36 Differential Diagnosis: cardiac arrhythmia, emotional response, idiopathic syncope. ms3 Data reviewed: vital signs, nurses notes, lab test result(s), EKG, radiologic studies, and as a result, I will admit patient. Consideration of Admission/Observation Patient was admitted/placed on observation. Management of patient was discussed with the following: Hospitalist: Dr Hawkins. Historians other than the Patient: Daughter/Son: Patient's daughter. Counseling: I had a detailed discussion with the patient and/or guardian regarding the historical points, exam findings, and any diagnostic results supporting the discharge/admit diagnosis, lab results, radiology results, the need for outpatient follow up, to return to the emergency department if symptoms worsen or persist or if there are any questions or concerns that arise at home. Special discussion: I discussed with the patient/guardian in detail that at this point there is no indication for admission to the hospital. It is understood, however, that if the symptoms persist or worsen the patient needs to return immediately for re-evaluation. ED course: Case was discussed with Dr. Hawkins and he agrees with plan for observation. Discussed necessity for observation with patient and her family. They understand and agree with plan.. 11/30 19:14 Order name: Basic Metabolic Panel; Complete Time: 21:30 ms3 11/30 19:14 Order name: CBC with Diff; Complete Time: 21:30 ms3 11/30 19:14 Order name: Hepatic Function; Complete Time: 21:30 ms3 11/30 19:14 Order name: Magnesium; Complete Time: 21:30 ms3 11/30 19:14 Order name: Protime (+inr); Complete Time: 21:30 ms3 11/30 19:14 Order name: Ptt, Activated; Complete Time: 21:30 ms3 11/30 19:14 Order name: Troponin High Sensitivity; Complete Time: 21:30 ms3 11/30 22:25 Order name: CBC with Automated Diff EDMS 11/30 22:25 Order name: CBC with Automated Diff; Complete Time: 06:20 EDMS 11/30 22:25 Order name: Comprehensive Metabolic Panel EDMS 11/30 22:25 Order name: Comprehensive Metabolic Panel; Complete Time: 06:20 EDMS 11/30 22:25 Order name: Troponin High Sensitivity EDMS 11/30 22:25 Order name: Troponin High Sensitivity; Complete Time: 01:13 EDMS 11/30 22:25 Order name: Troponin High Sensitivity; Complete Time: 06:20 EDMS 11/30 22:25 Order name: Troponin High Sensitivity EDMS 11/30 19:14 Order name: Chest Single View XRAY; Complete Time: 20:26 ms3 11/30 19:34 Order name: CT Head Brain wo Cont; Complete Time: 21:30 ms3 12/01 08:26 Order name: US EDMS 11/30 19:14 Order name: Cardiac monitoring; Complete Time: 19:39 ms3 11/30 19:14 Order name: EKG - Nurse/Tech; Complete Time: 19:39 ms3 11/30 19:14 Order name: IV Saline Lock; Complete Time: 20:48 ms3 11/30 19:14 Order name: Labs collected and sent; Complete Time: 20:48 ms3 11/30 19:14 Order name: NPO; Complete Time: 21:13 ms3 11/30 19:14 Order name: O2 Per Protocol; Complete Time: 20:49 ms3 11/30 19:14 Order name: O2 Sat Monitoring; Complete Time: 20:49 ms3 EC:36 Rate is 69 beats/min. Rhythm is regular. QRS [place] is Normal. CO interval is normal. QRS ms3 interval is normal. Clinical impression: NSR w/ Non-specific ST/T Changes. Interpreted by me. Reviewed by me. Administered Medications: 23:00 Drug: Ativan IVP 0.5 mg IVP once Route: IVP; Site: right antecubital; rg5 12/01 01:03 Follow up: Response: No adverse reaction 5 02:55 Drug: Ativan IVP 0.5 mg IVP once Route: IVP; Site: right antecubital; 5 10:05 Follow up: Response: No adverse reaction; Anxiety decreased; RASS: Drowsy (-1) ll1 Point of Care Testin:27 n/a ll1 Ranges: Critical Glucose Levels:Adult <50 mg/dl or >400 mg/dl <40 mg/dl or >180 mg/dl Disposition Summary: 11/30/24 21:35 Hospitalization Ordered Notes: Hospitalization Status: Observation ms3 Provider: Norman Hawkins ms3 Condition: Stable ms3 Problem: new ms3 Symptoms: are unchanged ms3 Bed/Room Type: Standard ms3 Location: [facility] ER HOLD(11/30/24 22:44) [facility] Room Assignment: ERHOLD-(11/30/24 22:44) [facility] Diagnosis - syncope ms3 Forms: - Medication Reconciliation Form ms3 - SBAR form ms3 - Leadership Thank You Letter ms3 Signatures: Dispatcher [employer] EDMS Negrita Cole, RN RN lg3 Chip Frias, DO ms3 Phoebe Hernandez RN RN ko1 Thomas Simon RN RN rg5 Lizbeth Canada RN ll1 Corrections: (The following items were deleted from the chart) 11/30 19:15 19:15 Chest Single View+RAD.RAD.BRZ ordered. EDNE EDMS 22:44 21:35 Telemetry/MedSurg (observation) ms3 lg3 22:44 21:35 ms3 lg3
[2024-11-30] MEDS ORDERED: ONDANSETRON 4 MG/2 ML VIAL IV PRN (22:20)
[2024-11-30] MEDS ORDERED: LORazepam 2 MG/ML VIAL ONE (23:02)
[2024-12-01] MEDS ORDERED: LORazepam 2 MG/ML VIAL ONE (01:14)
[2024-12-01 02:49] VITALS: BMI 30.9
[2024-12-01 05:23] LABS: Absolute Eosinophils 0.2 K/uL (0-0.5); Absolute Monocytes 0.6 K/uL (0.1-1.3); Absolute Neutrophil 3.3 K/uL (1.8-8.0); Basophils % 0.6 % (0-1.3); Hematocrit 34.3 % (36.0-45.0); Hemoglobin 11.4 g/dL (12.0-15.0); Lymphocytes % 19.9 % (15.3-44.8); MCH 28.7 pg (27.0-35.0); MCHC 33.2 g/dL (32.0-36.0); MCV 86.3 fL (80-100); MPV 7.9 fL (7.6-11.3); Monocytes % 11.4 % (3.3-12.3); Neutrophils % 65.1 % (41.7-73.7); Nucleated Red Blood Cells % 0.2 % (0-0); Platelets 186 thou/uL (152-406); RBC Red Blood Cell Count 3.98 M/uL (3.86-4.86); Red Cell Distribution Width 13.3 % (12.1-15.2)
[2024-12-01 05:50] LABS: Albumin 3.1 g/dL (3.4-5.0); Albumin/Globulin Ratio 1.1 (1.1-1.8); Anion Gap 6.9 mEq/L (5.0-15.0); Bilirubin Total 0.5 mg/dL (0.2-1.0); Globulin 2.8 g/dL (2.3-3.5); Potassium 3.9 mEq/L (3.5-5.1); Protein, Total 5.9 g/dL (6.4-8.2)
[2024-12-01] MEDS: PNEUMOCOCCAL VACCINE 0.5 ML IMVAC ONE (08:00)
--- NOTE | 2024-12-01 08:26 | RAD REPORT ---
EXAMINATION: CAROTID DUPLEX ULTRASOUND CLINICAL INDICATION: syncope TECHNIQUE: Real-time grayscale, color flow and spectral Doppler sonographic images were obtained of t he extracranial carotid system using a linear transducer. COMPARISON: No prior exam. FINDINGS: RIGHT: Common carotid artery: 81 cm/s Internal carotid artery: 78 cm/s External carotid artery: 79 cm/s Right ICA/CCA ratio: 1.2 Plaque: Mild to moderate hard plaque at the bulb. Vertebral artery Antegrade LEFT: Common carotid artery: 76 cm/s Internal carotid artery: 106 cm/s External carotid artery: 76 cm/s Left ICA/CCA ratio: 1.3 Plaque: Mild to moderate hard plaque at the bulb. Vertebral artery Antegrade IMPRESSION: No hemodynamically significant stenosis (greater than 50%) within the extracranial internal carotid a rteries. Mild to moderate hard plaquing is seen both carotid bulbs. The degrees of stenosis, if any, are quantified according to the consensus statement of the Society o f Radiologists in Ultrasound (SRUS). Please refer to Bear E, Av C, Che G et al. Carotid Artery Stenosis: Saldaña-Scale and Doppler US Diagnosis--Society of Radiologists in Ultrasound Consensus Conference. Radiology. 2003;229(2):340-6.
[2024-12-01] MEDS: ASPIRIN EC 81 MG TAB PO SCH (08:43)
[2024-12-01] MEDS: ESCITALOPRAM 5 MG TAB PO SCH (09:00)
[2024-12-01 11:26] VITALS: TEMP 97.8
[2024-12-01 14:36] VITALS: BP 116/70
[2024-12-01 17:10] VITALS: O2SAT 99
[2024-12-01] MEDS ORDERED: ATORVASTATIN 20 MG TAB PO SCH (21:00)
--- NOTE | 2024-12-02 03:58 | HP ---
Date of Admission: 12/01/2024 Chief Complaint: Fainting episode. History Of Present Illness: An 84-year-old very pleasant female patient, who was in her usual state of health until yesterday when she describes as having a very busy day as she was out of the house mo st of the day and did not drink much water yesterday as she normally does and she was at a local mall in a store trying some clothes out in the feeding room and daughter was with her in the feeding room and all of a sudden, the patient was feeling dizzy and daughter was right there next to her and she realized that the patient did not look normal and while she was talking to the patient and holding he r, next thing she knows that the patient started to faint and she gently placed the patient on the fl oor and the patient did actually pass out for a brief period of time and granddaughter was outside [facility] feeding room who ended up calling 911. The patient had episode of nausea, vomiting after that, but no chest pain, no shortness of breath. She appeared cold and clammy and after she was placed on the ground, she slowly started coming around and when ambulance came there, her blood pressure was on lo w side and she was brought into the emergency room and after she was evaluated, she was admitted to [facility]. This morning when I saw her, she was still in the emergency room and daughter was with her at bedside. No other complaints reported after she came into emergency room. When I saw her, noé denies any abdominal pain, nausea, vomiting. No chest pain, no shortness of breath. Allergies: NO KNOWN ALLERGIES. Medications: 1.Amlodipine 5 mg 2 times a day as needed for systolic blood pressure more than 130 and the patient' s daughter tells me that some days she ends up taking it and some day she does not depending on the b lood pressure as per instruction. 2.Aspirin 81 mg daily. 3.Escitalopram 5 mg daily. 4.Galantamine 8 mg daily. 5.Atorvastatin 20 mg daily. 6.Albuterol inhaler 2 puffs 4 times a day as needed. Review of Systems: Cardiovascular: As mentioned above. 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 All other systems reviewed and negative. Past Medical History: Mild intermittent asthma, hyperlipidemia, hypertension, [facility], irritable bowel syndrome, allergic rhinitis, anxiety, impaired memory, chronic fatigue, p rior history of TIA, vascular dementia, and depression, past medical history also significant for hyp othyroidism, past medical history also significant for vitamin D deficiency and osteopenia. Past Surgical History: Significant for tonsillectomy, cholecystectomy, appendectomy, hysterectomy, b ack surgery, bilateral knee arthroplasty, and right hand surgery. Family History: Father , had asthma and myocardial infarction. Mother , had cirrhosis of li taz. Brother had heart disease. Sister had Parkinson's disease and emphysema. Social History: Negative for smoking. Use of alcohol, occasional. Physical Examination: Vital Signs: This morning, temperature 98, pulse 67, respiratory rate 17, blood pressure 127/71, oxy gen saturation 97%. Height 5 feet 4 inches, weight 180 pounds. General: Awake, alert, oriented, not in distress. HEENT: Head atraumatic, normocephalic. Conjunctivae nonerythematous. Sclerae white. Mouth, no thr ush or edema noted. Ears/Nose, no mass, lesion, discharge noted. Neck: Supple. No JVD, lymph nodes, bruit, thyromegaly noted. Lungs: Bilateral good equal air entry. Clear to auscultation. No rhonchi. No rales. Heart: Normal heart sounds, no murmur or gallop. Abdomen: Soft, bowel sounds normal. No guarding, rigidity, tenderness, mass, hepatosplenomegaly, dis tention, or bruit noted. Extremities: No leg edema. No calf tenderness. Skin: No rash, ulcer, cellulitis. Lymphatics: No lymph node enlargement in neck, supraclavicular, infraclavicular region. Neuro: No focal neurological deficit. Chest: Unremarkable. External Genitalia: Deferred. Rectal: Deferred. Laboratory Data: Yesterday, WBC 9.5, hemoglobin 13.1, platelets 215. This morning, WBC 5, hemoglobi n 11.4, platelets 186. For chemistry yesterday, sodium 136, potassium 4.4, chloride 104, bicarb 26, BUN 15, creatinine 0.91, glucose 102. Liver function tests unremarkable. First troponin 6.6, second troponin 6.5, third troponin 6.6. This morning, sodium 138, potassium 3.9, chloride 107, bicarb 28, BUN 18, creatinine 0.74, glucose 134. Liver function tests unremarkable. Chest x-ray, no acute car diopulmonary changes. CT scan of the head, no acute intracranial changes. Carotid Doppler shows todd ateral carotid artery plaquing, but no evidence of any hemodynamically significant stenotic lesion. Echo with Doppler was done prior to discharge, results pending, and I will follow up on it on outpati ent basis. Hospital Course: After the patient was evaluated in the emergency room, she was admitted to the [facility]. I saw her this morning in the emergency room. Her daughter was with her at bedside. No abnor mal findings noted on physical exam. The patient was given IV fluid and she tolerated diet very well . Her stay was unremarkable in the hospital and after all the necessary testings were done, we commu nicated with the patient's daughter and she was with the patient all day and reported that she is com fortable taking the patient home. Medically, she is stable for discharge. We did check her orthosta tic vitals today at the hospital. Her supine blood pressure was 138/69 with pulse 62, sitting blood pressure 128/73 with pulse 73, standing blood pressure 114/71 with pulse 88. So after her brief stay in hospital, decision was made to discharge her to go home and I will follow up with her next week a s per scheduled appointment and the patient's daughter was notified about the followup appointment ne xt week. I did instruct the patient's daughter to discontinue her blood pressure medication which is amlodipine completely and to keep the patient well hydrated. Discharge Medications And Instructions: 1.Continue all prior home medications except stop amlodipine. 2.Drink 60 ounces water daily. 3.Follow up at my office next week. Final Diagnoses: 1.Syncope. 2.Hypotension. 3.Anemia, unspecified. 4.Vascular dementia. 5.Hypertension. 6.Hyperlipidemia. 7.Osteoarthritis, multiple sites. 8.Chronic aspirin use. 9.Anxiety. Total time spent today was 90 minutes that includes communication with emergency room physician, carmela garcia of emergency room visit records, review of last office visit record from 08/04/2024, performing to day's evaluation and management, and communication with the patient's daughter on multiple occasions through office today. BAUTISTA/MODL Voice ID: [id number]
--- NOTE | 2024-12-02 13:28 | ECHO ---
HEIGHT: 5 ft 4 in WEIGHT: 180 lb 0 oz DATE OF STUDY: REFER DR: Norman Hawkins MD 2-DIMENSIONAL: YES M.MODE: YES DOPPLER: YES COLOR FLOW: YES TDS: NO PORTABLE: YES DEFINITY: NO BUBBLE STUDY: NO DIAGNOSIS: SYNCOPE CARDIAC HISTORY: CATHERIZATION: NO SURGERY: NO PROSTHETIC VALVE: NO PACEMAKER: NO MEASUREMENTS (cm) DIASTOLIC (NORMALS) SYSTOLIC (NORMALS) IVSd 1.2 (0.6-1.2) LA Diam 2.8 (1.9-4.0) LVEF 55-60% LVIDd 4.7 (3.5-5.7) LVIDs 2.9 (2.0-3.5) %FS 38% LVPWd 1.2 (0.6-1.2) Ao Diam 2.7 (2.0-3.7) 2 DIMENSIONAL ASSESSMENT: RIGHT ATRIUM: NORMAL LEFT ATRIUM: NORMAL RIGHT VENTRICLE: NORMAL LEFT VENTRICLE: NORMAL TRICUSPID VALVE: NORMAL MITRAL VALVE: NORMAL PULMONIC VALVE: NORMAL AORTIC VALVE: NORMAL PERICARDIAL EFFUSION: NONE AORTIC ROOT: NORMAL LEFT VENTRICULAR WALL MOTION: NORMAL. DOPPLER/COLOR FLOW: NORMAL. COMMENTS: 1. NORMAL LEFT VENTRICULAR SYSTOLIC FUNCTION, EJECTION FRACTION 55-60%, NORMAL WALL MOTION. 2. NORMAL DIASTOLIC FUNCTION. TECHNOLOGIST: AWILDA GILMAN
--- NOTE | 2024-12-03 12:38 | EKG ---
Test Date: 2024-11-30 Test Time: 20:57:27 Assistant County Attorney: PENG MEASUREMENT RESULTS: Intervals: Rate: 69 AK: 142 QRSD: 82 QT: 442 QTc: 473 [place]: P: 31 AK: 142 QRS: -15 T: 75 INTERPRETIVE STATEMENTS: Normal sinus rhythm Septal infarct, age undetermined Abnormal ECG Compared to ECG 01/20/2024 05:45:24 No significant changes Electronically Signed On 12-03-24 12:33:09 MANAGER QA by Matthew Gore
== END 2024-12-01 14:36 | disposition home or self-care (01) ==
LOC: ER 18:40 → ERHOLD 22:20
PROVIDERS: ADMIT Internal Medicine; ATTEND Internal Medicine
DX: R55 Syncope and collapse (principal); I95.9 Hypotension, unspecified; D64.9 Anemia, unspecified; E78.5 Hyperlipidemia, unspecified; I10 Essential (primary) hypertension; M19.90 Unspecified osteoarthritis, unspecified site; J45.909 Unspecified asthma, uncomplicated; K58.9 Irritable bowel syndrome, unspecified; F41.9 Anxiety disorder, unspecified; R41.3 Other amnesia; R53.83 Other fatigue; F32.A Depression, unspecified; F01.50 Vascular dementia, unspecified severity, without behavioral disturbance, psychotic disturbance, mood disturbance, and anxiety; E03.9 Hypothyroidism, unspecified; Z79.82 Long term (current) use of aspirin
CPT/HCPCS: 36415; 70450; 71045; 80048; 80053; 80076; 83735; 84484; 85025; 85610; 85730; 93005; 93306; 93880; 96374; 99285; G0378